=== PATIENT | female | born 1980 ===

== ENCOUNTER 2021-02-03 03:12 | Emergency (ER) | payer OTHER ==
[~2021-02-03] VITALS: Ht 177.8 cm; Wt 72.6 kg
[~2021-02-03 03:12] MED LIST: ACEBUTCAFT PO; ALBU90OI INH; ERYT500 PO; GABA800 PO; GUAPHELA PO; HYDACE5; HYDACE5 PO; IBUP600 PO; LEVFLO500 PO; METCAR750 PO; PHENTERMINE 37.5 MG; PROM25 PO; RXHYDACE PO; SULTRIDS PO; SUMA25; TRAM50 PO
[2021-02-03] MEDS ORDERED: Cleocin HCl300 MG PO (04:33)
== END 2021-02-03 04:35 | disposition home or self-care (01) ==
LOC: ER 03:12
DX: L03.116 Cellulitis of left lower limb (principal); F17.210 Nicotine dependence, cigarettes, uncomplicated; Z88.0 Allergy status to penicillin
CPT/HCPCS: 99281; A9270

== ENCOUNTER → 2021-10-31 | Outpatient (CLI) | payer OTHER ==
[~2021-10-31] MED LIST changes: +Cleocin HCl300 MG PO
[2021-10-31 19:15] LABS: BASOPHILS ABSOLUTE AUTO 0.06 K/mm3 (0.00-0.23); BASOPHILS PERCENT AUTO 1 % (0-2); EOSINOPHILS ABSOLUTE AUTO 0.11 K/mm3 (0.00-0.68); EOSINOPHILS PERCENT AUTO 1 % (0-6); Hemoglobin 14.6 g/dL (11.5-16.0); IMMATURE GRAN ABSOLUTE AUTO 0.03 K/mm3 (0.00-0.10); IMMATURE GRAN PERCENT AUTO 0 % (0-1); LYMPHOCYTES ABSOLUTE AUTO 2.95 K/mm3 (0.84-5.20); LYMPHOCYTES PERCENT AUTO 26 % (21-46); MONOCYTES ABSOLUTE AUTO 0.96 K/mm3 (0.16-1.47); MONOCYTES PERCENT AUTO 9 % (4-13); Mean Corpuscular HGB 31.8 pg (26.0-34.0); Mean Corpuscular Volume 94 fL (80-100); Mean Platelet Volume 11.6 fL (9.1-12.4); NEUTROPHILS ABSOLUTE AUTO 7.15 K/mm3 (1.96-9.15); NEUTROPHILS PERCENT AUTO 64 % (41-73); Platelet Count 187 K/mm3 (150-400); RDW Coefficient Variation 14.1 % (11.7-14.2); RDW Standard Deviation 47.8 fL (35.1-46.3); Red Blood Cell Count 4.59 M/mm3 (3.80-5.20); White Blood Cell Count 11.26 K/mm3 (4.00-11.30)
[2021-10-31 19:21] LABS: Bun/Creatinine Ratio 14.9 (12.0-20.0); Calcium, Blood 8.9 mg/dL (8.5-10.1); Creatinine, Blood 1.01 mg/dL (0.40-1.00)
== END | disposition home or self-care (01) ==
LOC: LAB SHORT 19:09
PROVIDERS: Physician Assistant Surgical
DX: R06.09 Other forms of dyspnea (principal); R53.83 Other fatigue
CPT/HCPCS: 80048; 84443; 84484; 85025

== ENCOUNTER 2022-06-15 20:50 | Emergency (ER) | payer OTHER ==
[~2022-06-15] VITALS: Ht 177.8 cm; Wt 74.8 kg
[2022-06-15 21:39] LABS: BASOPHILS ABSOLUTE AUTO 0.06 K/mm3 (0.00-0.23); BASOPHILS PERCENT AUTO 1 % (0-2); EOSINOPHILS ABSOLUTE AUTO 0.23 K/mm3 (0.00-0.68); EOSINOPHILS PERCENT AUTO 3 % (0-6); Hematocrit 46.3 % (33.0-51.0); Hemoglobin 15.7 g/dL (11.5-16.0); IMMATURE GRAN ABSOLUTE AUTO 0.02 K/mm3 (0.00-0.10); IMMATURE GRAN PERCENT AUTO 0 % (0-1); LYMPHOCYTES ABSOLUTE AUTO 2.34 K/mm3 (0.84-5.20); LYMPHOCYTES PERCENT AUTO 28 % (21-46); MONOCYTES ABSOLUTE AUTO 0.77 K/mm3 (0.16-1.47); MONOCYTES PERCENT AUTO 9 % (4-13); Mean Corpuscular HGB Conc 33.9 g/dL (31.5-36.5); Mean Corpuscular Volume 92 fL (80-100); Mean Platelet Volume 12.2 fL (9.1-12.4); NEUTROPHILS ABSOLUTE AUTO 4.88 K/mm3 (1.96-9.15); NEUTROPHILS PERCENT AUTO 59 % (41-73); Platelet Count 173 K/mm3 (150-400); RDW Coefficient Variation 14.7 % (11.7-14.2); RDW Standard Deviation 50.3 fL (35.1-46.3); Red Blood Cell Count 5.06 M/mm3 (3.80-5.20)
[2022-06-15 21:58] LABS: Albumin/Globulin Ratio 0.7 (0.8-1.8); Bilirubin, Total 0.6 mg/dL (0.1-1.0); Bun/Creatinine Ratio 17.1 (12.0-20.0); Calcium, Blood 9.1 mg/dL (8.5-10.1); Creatinine, Blood 0.88 mg/dL (0.40-1.00); Globulin, Blood 4.2 g/dL (2.2-4.0); Potassium, Blood 3.8 mmol/L (3.5-5.5); Total Protein, Blood 7.2 g/dL (6.4-8.2)
[2022-06-15] MEDS ORDERED: LEVO750 PO (23:11)
[2022-06-15] MEDS ORDERED: ALBU90OI INH (23:42)
== END 2022-06-15 23:57 | disposition home or self-care (01) ==
LOC: ER 20:50
PROVIDERS: Student in an Organized Health Care Education/Training Program
DX: R05.9 Cough, unspecified (principal); F17.210 Nicotine dependence, cigarettes, uncomplicated; Z88.0 Allergy status to penicillin; Z91.09 Other allergy status, other than to drugs and biological substances; Z79.899 Other long term (current) drug therapy
CPT/HCPCS: 71046; 80053; 84484; 85025; 93005; 93010; 99284-25; A9270

== ENCOUNTER → 2022-12-07 | Outpatient (CLI) | payer OTHER ==
[~2022-12-07] MED LIST changes: +LEVO750 PO
== END | disposition home or self-care (01) ==
LOC: LAB SHORT 17:32 → LAB 17:32
DX: N39.0 Urinary tract infection, site not specified (principal)
CPT/HCPCS: 87077; 87086; 87186